=== PATIENT | male | born 1950 | race Caucasian/White ===

== ENCOUNTER 2024-11-25 15:40 | Emergency (ER) | payer MEDICARE, SELFPAY ==
[2024-11-25 15:48] VITALS: BP 175/63; PULSE 78; RESP 16; TEMP 36.9; O2SAT 97; BMI 26.7
--- NOTE | 2024-11-25 15:57 | ED.GENADULT ---
HPI - General Adult General Chief complaint: Unspecified Complaint, Adult Stated complaint: object stuck in throat Time Seen by Provider: 11/25/24 15:41 History of Present Illness HPI narrative: Arrives with complaints of a piece of pork being stuck in his esophagus for the past 30 minutes. Reports being unable to swallow his own secretions. Belching and spitting out saliva in triage and having mid epigastric pain . alert and oriented, ABCs intact. 74-year-old man presenting to the emergency department with concern of something stuck in his throat. Is eating some steak and seems to have hung up about 40 minutes prior to this interview. Some pain and pressure associated. No difficulty breathing but can not manage his own secretions at this point. Years ago did have treatment of duodenal ulcers via EGD. He has not been having any sort of pain nor does he note melena. A week ago did have a brief, spontaneously resolving food hang up, meat? Related Data Home Medications ?Medication ?Instructions ?Recorded ?Confirmed chlorthalidone 25 mg tablet 25 mg PO DAILY 02/15/24 11/25/24 doxazosin 4 mg tablet 4 mg PO DAILY 02/15/24 11/25/24 losartan 100 mg tablet 100 mg PO DAILY 02/15/24 11/25/24 metoprolol succinate 50 mg 50 mg PO DAILY 02/15/24 11/25/24 tablet,extended release 24 hr Allergies Allergy/AdvReac Type Severity Reaction Status Date / Time No Known Drug Allergies Allergy Verified 11/25/24 15:46 Review of Systems Status of ROS: Reports: 6 or more systems reviewed and unremarkable except as noted in History and below Exam Narrative: Exam Narrative: Pleasant. NAD but looks uncomfortable. Breathing easily. Has spit cup in hand. Oropharynx is unremarkable. Heart in regular rate and rhythm. Blood pressure noted to be little elevated. Const: Vital Signs, click to edit/add: Vital Signs - 24 hr 11/25/24 15:48 Temperature 98.5 F Pulse Rate [Pulse Oximeter] 78 Respiratory Rate 16 Blood Pressure [Ri ght Upper Arm] 175/63 H Pulse Oximetry 97 Oxygen Delivery Me thod Room Air Documenting provider has reviewed patient's vital signs: yes Course Vital Signs Vital signs: Initial Vital Signs Temperature 98.5 F 11/25/24 15:48 Temperature Source Temporal Artery Scan 11/25/24 15:48 Pulse Rate 78 11/25/24 15:48 Respiratory Rate 16 11/25/24 15:48 Blood Pressure 175/63 H 11/25/24 15:48 Blood Pressure Mean 100 11/25/24 15:48 Pulse Oximetry 97 11/25/24 15:48 Oxygen Delivery Method Room Air 11/25/24 15:48 Vital Signs Temperature 98.5 F 11/25/24 15:48 Pulse Rate 78 11/25/24 15:48 Respiratory Rate 16 11/25/24 15:48 Blood Pressure 175/63 H 11/25/24 15:48 Pulse Oximetry 97 11/25/24 15:48 Oxygen Delivery Method Room Air 11/25/24 15:48 Temperature 98.5 F 11/25/24 15:48 Pulse Rate 78 11/25/24 15:48 Respiratory Rate 16 11/25/24 15:48 Blood Pressure 175/63 H 11/25/24 15:48 Pulse Oximetry 97 11/25/24 15:48 Oxygen Delivery Method Room Air 11/25/24 15:48 Medications Administered Medications: Discontinued Medications Generic Name Dose Route Start Last Admin Trade Name Freq PRN Reason Stop Dose Admin Nitroglycerin 0.4 mg 11/25/24 16:13 11/25/24 17:11 Nitroglycerin 0.4 Mg Tab.Subl SUBLINGUAL 11/25/24 16:14 Not Given ONCE ONE Ondansetron HCl 4 mg 11/25/24 16:13 11/25/24 17:11 Ondansetron Odt 4 Mg Tab PO 11/25/24 16:14 Not Given ONCE ONE Simethicone/Sodium Bicarb/Citric Ac 1 each 11/25/24 16:13 11/25/24 17:11 Simethicone/Sod Bicarb/Cit Ac 1 Each Gran.Ef.Pk PO 11/25/24 16:14 Not Given ONCE ONE Medical Decision Making MDM Narrative Medical decision making narrative: May have developed a stricture. May have had increased swelling irritation related to these duodenal ulcers. Pending improvement might need to image further for mediastinal air? Anticipating treatment with Zofran and nitroglycerin and then ez gas. As we are preparing this, Mr. Alonso burntet does continue to try to drink a little water. I am informed subsequently that water has passed and it appears that the food boluses also has passed. Does report feeling much better. See patient discharge plan for further discussion I am happy you are feeling better. I would consider focusing on softer foods over the next couple of days. Stay well-hydrated. I think also that it would be a good idea for you to message your primary to consider getting an esophagogastroduodenoscopy to see if there might be something that might be causing this repeated trouble for you in your esophagus or upper stomach. Medical Records Medical records reviewed: Yes I reviewed the patient's medical records Discharge Plan Discharge Clinical Impression: Obstruction of esophagus due to food impaction Patient Disposition: Home, Self-Care Condition: Improved Additional Instructions: I am happy you are feeling better. I would consider focusing on softer foods over the next couple of days. Stay well-hydrated. I think also that it would be a good idea for you to message your primary to consider getting an esophagogastroduodenoscopy to see if there might be something that might be causing this repeated trouble for you in your esophagus or upper stomach. Prescriptions: No Action doxazosin 4 mg tablet 4 mg PO DAILY losartan 100 mg tablet 100 mg PO DAILY metoprolol succinate 50 mg tablet extended release 24 hr 50 mg PO DAILY chlorthalidone 25 mg tablet 25 mg PO DAILY Follow Up/Referrals: Provider,Not a Local [Primary Care Provider, Family Practice] Stand Alone Forms: [employer] Info Instructions
--- OUTSIDE RECORDS SUMMARY | 2024-11-25 16:21 | XMS_ITS | Clinical Summary ---
Author Organization [facility] Address [address] [place] [id number] Care Team Providers Care Experimental Mechanic Electrical Name Role Phone DuttaIsabel subramanian Ruth AREVALO Primary Care Provider [phone] Allergies Active Allergy Reactions Criticality Noted Date Comments Adhesive Itching Low 10/09/2023 Redness, ECG electrodes 3M red dot 2560 Medications sildenafil citrate (VIAGRA) 100 mg tablet Take 1 Tablet (100 mg) by mouth daily. 04/17/19 23 Active acetaminophen 500 mg tabletIndication s:S/P lumbar fusion Take 2 Tablets (1,000 mg) by mouth every 6 hours. Max acetaminophen dose: 4000mg in 24 hrs. 06/17/19 25 Active methocarbamoL 500 mg tabletIndication s:S/P lumbar fusion Take 1 Tablet (500 mg) by mouth every 6 hours. 06/17/19 25 Active polyethylene glycol 17 g per packet packetIndication s:Constipation, unspecified constipation type Mix 17 g (1 Packet) in liquid then take by mouth once daily. 06/21/19 25 Active sennosides-docus ate (8.6-50 mg) tabletIndication s:Constipation, unspecified constipation type Take 2 Tablets by mouth two times daily. 06/21/19 25 Active metoprolol succinate 50 mg sustained-releas e tabletIndication s:HTN (hypertension) Take 1 Tablet (50 mg) by mouth once daily. 90 Tablet 1 07/23/19 25 Active chlorthalidone (HYGROTON) 25 mg tabletIndication s:Essential hypertension Take 0.5 Tablets (12.5 mg) by mouth once daily. 45 Tablet 10/20/19 25 Active losartan (COZAAR) 100 mg tabletIndication s:Essential hypertension Take 1 Tablet (100 mg) by mouth once daily. 90 Tablet 10/20/19 25 Active doxazosin (CARDURA) 2 mg tabletIndication s:Essential hypertension Take 1 Tablet (2 mg) by mouth at bedtime. 90 Tablet 10/20/19 25 Active doxycycline hyclate 50 mg capsuleIndicatio ns:skin and skin structure infection Take 1 Capsule (50 mg) by mouth two times daily. 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 Stage 3b chronic kidney disease 11/19/2022 Arteriosclerosis of abdominal aorta 11/05/2022 Post herpetic neuralgia 10/31/2021 Prostate cancer 04/26/2013 Deafness 02/25/2010 Encounters Date Type Department Care Team Description 11/25/2024 3:15 PM CDT Nurse/Clinic [place] [facility] [address] [place] [address] Throat Problem 11/25/2024 Nurse Triage [facility] [address] [place] [address] Isabel Dutta NP Swallowing Difficulty 11/25/2024 Travel 11/09/2024 9:45 AM CDT Nurse/Clinic Staff [place] [facility] [address] [place] [address] Blood Pressure 11/09/2024 Telephone [facility] [address] [place] [address] Isabel Dutta NP Blood Pressure 11/09/2024 Travel 10/26/2024 9:00 AM CDT Office Visit [facility] [address] [place] [address] Daniel Adkins, OD Eye Exam (CEE) 10/26/2024 Travel 10/19/2024 1:15 PM CDT Nurse/Clinic Staff [place] [facility] [address] [place] [address] Blood Pressure 10/19/2024 Telephone [facility] [address] [place] [address] Isabel Dutta, MICKEY Blood Pressure 10/19/2024 Travel 09/08/2024 Telephone [facility] [address] [place] [address] Daniel Adkins, OD Prior Authorization (doxycycline 50 mg tablet DENIED) 09/01/2024 11:40 AM CDT Office Visit [facility] [address] [place] [address] Daniel Adkins, OD Follow Up (1 Week Dry Eye Follow Up ) 09/01/2024 Travel 08/25/2024 10:40 AM CDT Office Visit [facility] [address] [place] [address] Daniel Adkins, OD Eye Problem (Dryness Consult) 08/25/2024 Travel from Last 3 Months Immunizations Immunization Administration Dates Next Due COVID-19 vaccine (Moderna Fuad arya 50mcg/0.25mL) PF, MDV 07/10/2021,01/01/2021 Hepatitis B (Adult) 09/29/2012,05/05/2012,2012 Influenza, Inactivated AIIV4 (Age 65+ Years) Preserv Free 10/31/2021,01/01/2021 Pneumococcal Conj 20-valent (Prevnar 20) 022 Tdap 06/02/2024,06/23/2003 Family History Medical History Relation Name Comments Cancer-prostate Father Relation Name Status Comments Brother 1 Brother 2 Alive Brother 3 Alive Brother 4 Alive Daughter Alive Father (Age 74) Maternal Grandfather Maternal Grandmother Mother Paternal Grandfather Paternal Grandmother Sister 1 Sister 2 Alive Sister 3 Alive Social History Tobacco Use Types Packs/Day Years Used Date Smoking Tobacco: Former Cigarettes 1 20 0 10/24/1965 - 10/24/1985 Passive Smoke Exposure: Never Smokeless Tobacco: Never Tobacco Cessation:Counseling Given: Not Answered Alcohol Use Standard Drinks/Week Comments Not Currently 0 (1 standard drink = 0.6 oz pur e alcohol) PHQ-2 Answer Date Recorded PHQ-2 TOTAL SCORE 0 12/01/2023 Social Connections Answer Date Recorded Do you often feel lonely or isolated from those around you? 0 06/15/2024 Financial Resource Strain Answer Date R ecorded Difficulty of Paying Living Expenses 3 06/17/2023 Difficulty of Paying Living Expenses Not on file 06/17/2023 Food Insecurity Answer Date Recorded Do you worry your food will run out before you are able to buy more? 1 06/15/2024 Transportation Needs Answer Date Record ed Does lack of transportation keep you from medica l appointments? 1 06/15/2024 Does lack of transportation keep you from work, meetings or getting things that you need? 1 06/15/2024 Housing Stability Answer Date Recorded What is your housing situation today? 1 06/15/2024 Interpersonal Safety Answer Date Record ed Are you being hit, kicked, p ushed or yelled at (see row info)? No 06/15/2024 Interpersonal Safety Abuse 12 - 18 Not on file 06/15/2024 Interpersonal Safety Ambulatory Vulnerability No t on file 06/15/2024 Utilities Answer Date Recorded Do you have trouble paying f or utilities (for example, heat, electricity, water, phone)? 1 06/15/2024 Sex and Gender Information Value Date Recorded Sex Assigned at Not on file Legal Sex Male 6:[address] STENOGRAPHER Gender Identity Not on file Sexual Orientation Not on file Occupation Industry Job Start Date Job End Date Retired Not on file Not on file Not on file Not on file Not on file Not on file Not on file Obstetrics History Last Filed Vital Signs Vital Sign Reading Time Taken Comments Blood Pressure 152/63 11/25/2024 3:01 PM CDT Pulse 66 11/25/2024 3:01 PM CDT Temperature 36.8 C (98.2 F) 06/20/2024 7:49 AM CDT Respiratory Rate 16 06/20/2024 7:49 AM CDT Oxygen Saturation 99% 11/25/2024 3:01 PM CDT Inhaled Oxygen Concentration - - Weight 85.7 kg (189 lb) 07/07/2024 2:30 PM CDT Height 177.8 cm (5' 10) 06/15/2024 6:38 AM CDT Body Mass Index 27.12 06/15/2024 6:38 AM CDT Plan of Treatment Upcoming Encounters Date Type Department Care Team (Late st Contact Info) Description 12/01/2024 10:00 AM CDT [place] [facility] [address] [place] [address] [place] [address] [place] [address] Health Maintenance Due Date Last Done Comments Hepatitis C screening for ag e 18-79 1967 Zoster (shingles) series for age 50+ (1 of 2) 1999 RSV vaccine for adults or (1 - 1-dose 75+ series) 2024 COVID-19 vaccine series ( season) 2024 07/10/2021, 01/01/2021, 05/21/2020, Additional history exists Influenza Vaccine (#1) 2024 10/31/2021, 2020 Depression screening for age 12+ 12/01/2024 12/02/2023, 12/01/2023, 06/17/2023, Additional history exists Medicare Wellness for age 65+ 12/01/2024 12/01/2023, 10/31/2021 BMI (ht and wt on same day) for age 18+ 06/02/2025 06/02/2024, 12/01/2023, 05/21/2023, Additional history exists Colonoscopy through age 75 03/31/202603/31, 03/31/2023, 03/31/2023, Additional history exists Lipids for age 45-75 11/30/2028 12/01/2023, 05/13/2022, 02/25/2010 (Postponed) Tetanus booster 06/02/2034 06/02/2024, 02/16 (Postponed), 06/23/2003 Hepatitis B series for 19+ Completed 09/29, 05/05/2012, 03/23/2012 Pneumococcal series for age 50+ Completed 2 Medical Devices Implanted Type Area Physician/Allergy/Immunology Device Identifier Shelf Expiration Date Model / Serial / Lot Bone 1-10mm 30cc Medtronic Chips Canclls Freeze Dried - [id number] Implanted:Qty: 1 on 06/15/2024 by Adelso Barragan MD at [facility] N/A: Spine Medtronic Spine/Ortho [id number] 03/19/2026 [id number] / [id number] / Screw Lmbr Post 7.5x45mm Tsrh 3dx Og Thin Va - [id number] Implanted:Qty: 1 on 06/15/2024 by Adelso Barragan MD at [facility] N/A: Spine Medtronic Spine/Ortho [id number] / / Graft Bone 6cc Rebecca Dbf Inject - [id number] Implanted:Qty: 1 on 06/15/2024 by Adelso Barragan MD at [facility] N/A: Spine Medtronic Spine/Ortho 03/11/2025 [id number] / [id number] / Spacer Catalyft 9mm Pl Lng - [id number] Implanted:Qty: 1 on 06/15/2024 by Adelso Barragan MD at [facility] N/A: Spine Medtronic Spine/Ortho 03/10/2032 [id number] / / [id number] Spacer Catalyft 9mm Pl Lng - [id number] Implanted:Qty: 1 on 06/15/2024 by Adelos Barragan MD at [facility] N/A: Spine Medtronic Spine/Ortho 02/04/2032 [id number] / / [id number] Dariel Lmbr 35mmx5.5 Tsrh 3dx Cvd Co Cr - [id number] Implanted:Qty: 2 on 06/15/2024 by Adelso Barragan MD at [facility] N/A: Spine Medtronic Spine/Ortho [id number] / / Cnnctr Lmbr Sm 5.5mm Tsrh 3dxtitnm - [id number] Implanted:Qty: 4 on 06/15/2024 by Adelso aBrragan MD at [facility] N/A: Spine Medtronic Spine/Ortho [id number] / / Set Screw Lmbr Tsrh 3dx - [id number] Implanted:Qty: 4 on 06/15/2024 by Adelso Barragan MD at [facility] N/A: Spine Medtronic Spine/Ortho [id number] / / Screw Lmbr Post 6.5x40mm Tsrh 3dx Og Thin Va - [id number] Implanted:Qty: 2 on 06/15/2024 by Adelso Barragan MD at [facility] N/A: Spine Medtronic Spine/Ortho [id number] / / Screw Lmbr Post 7.5x40mm Tsrh 3dx Og Thin Va - [id number] Implanted:Qty: 1 on 06/15/2024 by Adelso Barragan MD at [facility] N/A: Spine Medtronic Spine/Ortho [id number] / / Procedures Procedure Name Priority Date/Time Associated Diagnosis Comments LIPID PANEL W REFLEX MEASURED LDL Routine 12/01/2023 10:32 AM CDT Lipid screening COLONOSCOPY SCREENING Routine 03/31/2023 9:[address] STENOGRAPHER Screening for colon cancer from Last 3 Months or Most Recently Relevant to Health Maintenance Results * (ABNORMAL) LIPID PANEL W REFLEX MEASURED LDL (12/01/2023 10:32 AM CDT) CHOLESTEROL, TOTAL 177 <200 mg/dL [facility] HDL CHOLESTEROL 34(L) > OR = 40 mg/dL [facility] TRIGLYCERIDES 125 <150 mg/dL [facility] LDL-CHOLESTEROL 119(H) mg/dL (calc) [facility] Comment: Reference range: <100 Desirable range <100 mg/dL for primary prevention; <70 mg/dL for patients with CHD or diabetic patients with > or = 2 CHD risk factors. LDL-C is now calculated using the Benjie calculation, which is a validated novel method providing better accuracy than the Friedewald equation in the estimation of LDL-C. Atilio REARDON et al. JOSE. 2013;310(19): 2906-3346 (http://education.SCIenergy/faq/DTO380) CHOL/HDLC RATIO 5.2(H) <5.0 (calc) [facility] NON HDL CHOLESTEROL 143(H) <130 mg/dL (calc) [facility] Comment: For patients with diabetes plus 1 major ASCVD risk factor, treating to a non-HDL-C goal of <100 mg/dL (LDL-C of <70 mg/dL) is considered a therapeutic option. Blood BLOOD SPECIMEN / Unknown 12/01/2023 10:32 AM CDT 12/01/2023 10:37 AM CDT Isabel Dutta DIMETHYLANILINE SULFATOR OPERATOR CHEMISTRY Final Res ult @[facility] [id number] [place] [address], [facility] [address] [place] [address] * COLONOSCOPY (03/31/2023 9:[address] STENOGRAPHER) 03/31/2023 9:[address] STENOGRAPHER Narrative Transcriptions Atilio Dickey MD - 03/31/2023 10:36 AM CST Patient Name: Mehul Gupta Procedure Date: 03/31/2023 Gender: Male Date of : 1950 Admit Type: Outpatient Procedure: Colonoscopy Proceduralist: Atilio Dickey MD , Arielle Olmstead, RN(Nurse), Yvrose Callahan (Nurse) Referring MD: Isabel Dutta Indications/Pre-Op Diagnosis: Screening for colorectal malignant neoplasm, Last colonoscopy: February 2013 Medications: Fentanyl 100 micrograms IV, Midazolam 2 mgIV, The level of sedation administered wasmoderate Procedure Description: The patient had risks, benefits and alternatives explained to andgave informed consent. The patient had a stable cardiopulmonary status and judged an adequate candidate for conscious sedation. The [id number] was passed through the anus and advanced to the cecum, identified by appendiceal orifice and ileocecal valve. The colonoscopy was performed without difficulty. The patient toleratedthe procedure well. The quality of the bowel preparation was good. The ileocecal valve, appendiceal orifice, and rectum were photographed. Complications: No immediate complications. Estimated Blood Loss & Specimen: Estimated blood loss: none. Specimen collected - Yes and sent to Laboratory Findings: The perianal and digital rectal examinations were normal. A 3 mm polyp was found in the appendiceal orifice. The polyp was sessile. The polyp was removed with a cold snare. Resection and retrieval were complete. A 6 mm polyp was found in the descending colon. The polyp was pedunculated. The polyp was removed with a cold snare. Resection and retrieval were complete. Multiple small-mouthed diverticula were found in the sigmoid colonand descending colon. The exam was otherwise without abnormality. Impressions/Post-Op Diagnosis: - One 3 mm polyp at the appendiceal orifice, removed with a coldsnare. Resected and retrieved. - One 6 mm polyp in the descending colon, removed with a cold snare. Resected and retrieved. - Diverticulosis in the sigmoid colon and in the descending colon. - The examination was otherwise normal. Recommendation: - Patient has a contact number available for emergencies. The signsand symptoms of potential delayed complications were discussed with the patient. Return to normal activities tomorrow. Written discharge instructions were provided to the patient. - Resume previous diet. - Continue present medications. - Await pathology results. - Repeat colonoscopy is recommended. The colonoscopy date will be determined after pathology results from today's exam become available for review. Moderate Sedation: A time out was performed before the procedure. Moderate (conscious) sedation was administered by the endoscopy nurse and supervised bythe endoscopist. The following parameters were monitored: oxygensaturation, heart rate, blood pressure, EKG, CO2, respiratory rate, adequacy of pulmonary ventilation and reponse to care. Please refer to the patient's medical record flowsheets and nursing notes for moderate sedation details. Total physician intraservice time was 21 minutes. Atilio Dickey MD 03/31/2023 10:36:04 AM This report has been signed electronically. Note Initiated On: 03/31/2023 9:39 AM Procedure Code(s): --- Professional --- 49411, Colonoscopy, flexible; with removalof tumor(s), polyp(s), or other lesion(s) bysnare technique Diagnosis Code(s): --- Professional --- Z12.11, Encounter for screening formalignant neoplasm of colon D12.1, Benign neoplasm of appendix D12.4, Benign neoplasm of descending colon K57.30, Diverticulosis of large intestine without perforation or abscess withoutbleeding CPT copyright 2021 [employer]. All rights reserved. The codes documented in this report are preliminary and upon truck bracer reviewmay be revised to meet current compliance requirements. Scope In: 10:08:49 AM Scope Withdrawal Time 0 hours 13 minutes 18 seconds Scope Out: 10:27:54 AM us Atilio Dickey MD PROCEDURE ORD Final Res ult from Last 3 Months or Most Recently Relevant to Health Maintenance Insurance [employer] MEDICARE ADVANTAGE MR MEDICARE PART A HB ONLY Advance Directives * Full Code (Latest Code Status on File) Date Activated Date Inactivated Comments 06/15/2024 6:00 AM 06/20/2024 2:07 PM Question Answer Comments Code Status Discussion: Unable to Assess Preferences, Provider to review later Care Teams Experimental Mechanic Electrical Relationship Specialty [place] [address] [place] [address] PCP - General Nurse Practitioner 06/17/22
--- OUTSIDE RECORDS SUMMARY | 2024-11-25 16:21 | XMS_ITS | Encounter Summary ---
Author Organization Formerly [facility] Address [address], [place] [address] Care Team Providers Care Inventory Transcriber Name Role Phone Clinician, Not Found Primary Care Provider Un available Encounter Details Date Type Department Care Team (Latest Contact Info) Description 03/23/2012 Correspondence [facility] [address] [facility] [place] [address] PREPLACEMENT EXAM FORM Social History Tobacco Use Types Packs/Day Years Used Date Smoking Tobacco: Never Assessed Sex and Gender Information Value Date Recorded Sex Assigned at Not on file Legal Sex Male 6:55 AM CDT Gender Identity Not on file Sexual Orientation Not on file documented as of this encounter Progress Notes * NURSE/ASSIST 1 [facility] - 03/23/2012 12:00 AM CST T MECHANIC documented in this encounter Plan of Treatment Not on file documented as of this encounter Visit Diagnoses Not on filedocumented in this encounter Care Teams Inventory Transcriber Relationship Specialty Start Date End Date Clinician, Not Found, [place] [address] PCP - General 02/18/23 documented as of this encounter
--- OUTSIDE RECORDS SUMMARY | 2024-11-25 16:21 | XMS_ITS | Clinical Summary ---
[facility] Address [address], [place] [address] Care Team Providers Care Bank Appraiser Name Role Phone Clinician, Not Found MD Primary Care Provider Un available Source Comments You are receiving this document as you are listed as the primary care provider,follow-up provider, or the patient has been referred to you for consultation.This is in compliance with the Medicare and[facility] Incentive Program,which states Providers who transition their patient to another setting of careor provider of care or refers their patient to another provider of care shouldprovide summary care record for each transition of care or referral. [employer] Allergies No known active allergies Medications moxifloxacin (VIGAMOX) 0.5 % eye drop solution One drop left eye every 2 hours while awake until follow-up with ophthalmology 3 mL 1 1 Active Additional Information Patient not taking.Reported on 03/17/2022 tobramycin-dex amethasone (TOBRADEX) 0.3-0.1 % eye drop suspension Place 1 Drop into left eye 4 times a day. 5 mL 1 Active Additional Information Patient not taking.Reported on 03/17/2022 prednisoLONE acetate (PRED FORTE) 1 % eye drop suspension Place 1 Drop into right eye six times a day. 10 mL 1 Active Additional Information Patient not taking.Reported on 03/17/2022 atropine 1 % eye drop solution Place 1 Drop into right eye three times a day. 5 mL 1 Active Additional Information Patient not taking.Reported on 03/17/2022 moxifloxacin (VIGAMOX) 0.5 % eye drop solution Place 1 Drop into right eye three times a day. 3 mL 1 1 Active Additional Information Patient not taking.Reported on 03/17/2022 erythromycin 5 MG/GM (0.5%) eye ointment Place 0.5 Inches into both eyes daily at bedtime. 3.5 g 3 1 Active Additional Information Patient not taking.Reported on 03/17/2022 difluprednate (DUREZOL) 0.05 % eye drop emulsion Place 1 Drop into right eye 4 times a day. 5 mL 1 1 Active Additional Information Patient not taking.Reported on 03/17/2022 sildenafil (VIAGRA) 100 MG tablet TAKE 1 TABLET (100 MG) BY MOUTH DAILY. 8 Tablet 4 Active Active Problems Problem Noted Date Diagnosed Date Hypertensive chronic kidney disease with stage 1 through stage 4 chronic kidney disease, or unspecified chronic kidney disease 10/08/2023 Dilation of aorta 02/12/2023 Stage 3b chronic kidney disease 11/19/2022 Arteriosclerosis of abdominal aorta 11/05/2022 Post herpetic neuralgia 10/31/2021 Epistaxis 10/12/2019 Prostate cancer 04/26/2013 GI bleed 03/10/2013 Rectal bleeding 03/10/2013 Elevated prostate specific antigen (PSA) 014 Advanced directives, counseling/discussion 06/22 Overview (04/08/2022): Discussed Advance Directive planning with patient; information given to patient to review. Diverticulitis of colon 05/25/2012 Overview (04/08/2022): May 2012 Hyperlipidemia LDL goal <130 05/25/2012 Deafness in right ear 02/25/2010 Immunizations Immunization Administration Dates Next Due HepB Adult (Engerix-B, 20+ y rs, 3 dose series) 09/29/2012,05/05/2012,03/23/2012 Family History Medical History Relation Name Comments Cataract Mother Macular Degeneration Daughter Amblyopia/Strabismus Negative Family History Blindness Negative Family History Glaucoma Negative Family History Retinal Detachment Negative Family History Relation Name Status Comments Mother Daughter Alive Social History Tobacco Use Types Packs/Day Years Used Date Smoking Tobacco: Former Sex and Gender Information Value Date Recorded Sex Assigned at Not on file Legal Sex Male 6:55 AM CDT Gender Identity Not on file Sexual Orientation Not on file Last Filed Vital Signs Vital Sign Reading Time Taken Comments Blood Pressure 148/58 06/16/2020 10:16 AM CDT Pulse 58 06/16/2020 10:16 AM CDT Temperature 36.6 C (97.9 F) 06/16/2020 10:16 AM CDT Respiratory Rate 16 06/16/2020 10:16 AM CDT Oxygen Saturation 100% 06/16/2020 10:16 AM CDT Inhaled Oxygen Concentration - - Weight - - Height - - Body Mass Index - - Plan of Treatment Health Maintenance Due Date Last Done Comments Colon Cancer Screening Plan Due 1950 Hep C Screening (Preventive Services) 1950 Zoster/Shingles Vaccine (1 of 2) 1999 DTaP/Tdap/Td Vaccine (2 - Tdap) 06/22/2013 06/23/2003 Medicare Annual Wellness Visit 02/17/2024 RSV Vaccine (1 - 1-dose 75+ series) 2024 COVID-19 Vaccine ( season) 2024 07/10/2021, 01/01/2021, 05/21/2020, Additional history exists Influenza Vaccine (#1) 2024 10/31/2021, 2020 HepB Vaccine Completed 09/29/2012, 04/17, 03/23/2012 Pneumococcal Vaccine 50+ Yrs Completed 10/31/2021 Abdominal Aortic Aneurysm (AAA) Screening Discontinued 11/22/2021 HepA Vaccine Aged Out No longer eligi ble based on patient's age to complete this topic Hib Vaccine Aged Out No longer eligi ble based on patient's age to complete this topic MCV4 Vaccine Aged Out No longer eligi ble based on patient's age to complete this topic Meningococcal B Vaccine Aged Out No l onger eligible based on patient's age to complete this topic Insurance [facility] MEDICARE Care Teams Bank Appraiser Relationship Specialty Start Date End Date Clinician, Not Found, [place] [address] PCP - General 02/18/23
== END 2024-11-25 17:00 | disposition home or self-care (01) ==
PROVIDERS: Emergency Provider Family Medicine
DX: T18.128A Food in esophagus causing other injury, initial encounter (principal)
CPT/HCPCS: 99283; 99284